=== PATIENT | female | born 1950 | race Caucasian/White ===

== ENCOUNTER 2018-04-04 10:00 | Outpatient (RCR) | payer MEDICARE, OTHER, SELFPAY ==
--- NOTE | 2018-03-06 19:15 | HP.OTEVAL_ITS ---
Patient's Visit Information NENA ROBLES is a 67 year old F, referred to Occupational Therapy by Amrit Adams, with a diagnosis of . Date of Evaluation: 03/06/18 Occupational Therapist: Kayla Rivera - Subjective Subjective: Arrived to OT eval on this date. Noted she has been dealing with hand pain over last year and half. Noted that she had two cortisone injections. - Pain Bilateral Hand 4 Pain Intensity Range: 1, 2, 9 - Rehabilitation Rehabilitation Potential: Good - Anticipated Interventions Anticipated Interventions: A/AAROM/PROM, Strengthening, Edema Control, Triggerpoint Release, Modalities, Orthoses, Joint Protection/Energy Conservation , Ergonomic Education, Fine Motor Coord/Tariq, Visual/Perceptual Skills, ADL Training, Caregiver Training, Home Program - Visit Plan Frequency: 2x /Week Duration: 6 Weeks TEXT: Thank you for the opportunity to evaluate your patient. For Medicare and Medicare HMO plans, please review the plan of care and approve it. It will need to be FAXED BACK to us at [phone] for Medicare purposes. Please let me know if there are questions or concerns regarding this plan of care. Physician Signature: Date:
--- NOTE | 2018-03-07 09:35 | HP.OTEVAL_ITS ---
Patient's Visit Information MARGOT ROBLES is a 67 year old F, referred to Occupational Therapy by Amrit Adams, with a diagnosis of Hand Pain M79.643. Date of Evaluation: 03/06/18 Occupational Therapist: Kayla Rivera - Subjective Subjective: Arrived to OT evaluation on this date. Noted she has been dealing with hand pain over last year and half. Noted that she had two cortisone injections. She has received MRI on B hands. R handed MRI indicated flexor tenosynovitis of 3rd and 4th digits, as well as cyst on 3rd metacarpal and small osteophytes of IP 1st digits. Hands were swollen upon arrival and she noted that is normal. She has lymphedema in B ankles. She described worry of being unable to make full fists and consistent pain. She noted she had multiple blood work completed and levels for lupus, RA, and inflammatory arthritis were all very low. She noted that doctor did give dx of inflammatory arthritis. - Pain Bilateral Hand 4 Pain Intensity Range: 1, 2, 9 - Objective Objective/Observation: Swelling over MCPS and at PIP joints of hand. Limited ROM and unable to form full composite fist. Increased tenderness with palpation over volar base of MCP at 3rd and 4th fingers. Sensation intact. - ROM Forearm: Sup WNL Wrist: R flexion 0-75, L 0-75; ext R 0-34, L 0-45 MP: R 2-5th: 6-53, 5-52, 4-38, -14-54; L 2-5th: 0-45, 10-45, -8-55, 5-59 PIP: R 2-5th: 0-92, 4-93, 0-92, 10-91; L 2-5th: 4-84, 23-83; 5-84; 0-76 DIP: R 2-5th: 5-30, -10-43, -10-48, -2-25; L 2-5th: 8-37, 0-53, 0-37, 0-27 ROM Comments: MF to palm 3 cm on B hands. Unable to form full composite fist. - Strength Clinical Provider Trainer: R 11, L 29 Lateral Pinch: R 13, L 14 Tripod Pinch: R 9, L 12 Tip-to-Tip Pinch: R 8, L 10 - Edema Proximal Phalanx: PF 7.2 cm - Sensation Thumb: R 3.61, L 3.22 Index: R 2.83, L 2.83 Middle: R 2.83, L 2.83 Ring: R 2.83, L 2.83 Little: R 2.83, L 2.83 - DASH-Disabilities of Arm, Shoulder& Hand DASH Sum: 88 - Goals Goal:: Pt. to increased B heating and ventilation engineer strength by 15-20 lbs to promote increased ability to heating and ventilation engineer and manipulate self-care times by d/c. Goal:: Margot to inceased ROM of B hand to form full fist 4/5 trials 80% of the time to promote ability to manipualte items need for fx activities by d/c. Goal:: Margot to complete pain management techniques and compensation to decreased pain to 1-2/10 during fx tasks with bvreaks as needed to promote increased QOL by d/c. Goal:: Margot to be (I) to complete edema reduction and management techniques of massage and compression garments 4/5 trials 80% of the time to manage edema by d/c. Goal:: Margot to be mod I to complete joint protection techniques and energy conservation techniques 4/5 trials 80% of the time to help manage pain and protect hands to increased participation with ADL/IADls by d/c. - Rehabilitation General Assessment: Margot arrived to OT evaluation on this date. She has been having hand pain consistently for last year and half and has already received 2x cortisone shots. The first cortisone shot relieved pain for 8 months but pain return and became worse. She noted that she has had MRI on B hands. Joint were good as per patient report from results given by doctor. She brought report of R hand MRI with indicated flexor tenosynovitis of trigger finger of 3rd and 4th digits, subchondrial cyst at 3rd MCP head, and the starts of small osteophytes of IP of 1st digit. She noted hand pain is unbearable, but she continues to complete tasks. Trigger finger is not locking as consistently as per Pt. report since cortisone injections. Edema noted t/o B hands with significant swelling around MCP. L hand appears to have increased swelling but Pt. report less pain. She noted that testing complete for lupus, RA, and additional arthritis and blood work was insignificant but was diagnosed with inflammatory arthritis. ROM and strength are both limited at this time. Pain is significant and increased with daily activities. Pt. reports 3-9/10 consistently. Rehabilitation Potential: Good - Anticipated Interventions Anticipated Interventions: A/AAROM/PROM, Strengthening, Edema Control, Triggerpoint Release, Modalities, Orthoses, Joint Protection/Energy Conservation , Ergonomic Education, Fine Motor Coord/Tariq, Visual/Perceptual Skills, ADL Training, Caregiver Training, Home Program - Visit Plan Frequency: 2x /Week Duration: 6 Weeks General Plan: Margot to complete OT to help provided education and techniques to help manage pain in B hands and edema to promote increased participation in ADl/IADLs. ROM, strengthening, as well as joint protection and energy conservation techniques to be completed as well as to promote increasing QOL and ability to complete fx tasks. TEXT: Thank you for the opportunity to evaluate your patient. For Medicare and Medicare HMO plans, please review the plan of care and approve it. It will need to be FAXED BACK to us at [phone] for Medicare purposes. Please let me know if there are questions or concerns regarding this plan of care. Physician Signature: Date:
--- NOTE | 2018-07-04 17:06 | HP.OTREVAL ---
Amrit Adams, It has been my pleasure to treat MARGOT ROBLES over the last 8 visits for Hand Pain M79.643. Please see the progress note below for an update on the occupational therapy plan of care! Subjective: Arrived and noted today is last scheduled appointment. Feels about 30-40% improved and she noted pain not near as severe as when I came in. Believes swelling is down; wears gloves every other day as opposed to finger braces. Talked about when completing repetitive tasks with hands e.g. cooking, cleaning etc. Verbalized understanding. Objective/Function: Completed reassessment on this date. Increased pain symptoms with movement. ROM measurements are as follows: wrist flexion R 0-77, L 0-85; ext R 0-45, L 0-56. R hand is able to make composite fist today and measurements are as follows: R. 2 MCP 5-75, PIP 0-96, DIP WFL. 3 MCP 0-71, PIP 8-96, DIP WFL. 4 0-63, PIP 0-94, DIP WFL. 5th MCP 0-75, PIP 9-97, DIP WFL. L hand. 2 MCP 5-61, PIP 3-96, DIP WFL. 3 MCP 0-58, PIP 25-89, DIP WFL. 4th MCP 3-58, PIP 0-86, DIP WFL. 5th MCP 13-76, PIP -8-84, DIP WFL. Edema at Proximal Phalanx: IF R 8.1 cm, L 8.2 cm. MF R 8.1 cm, L 8.5 cm. RF 7.8 cm, L 8 cm. PF 6.8 cm, L 7 cm. Strength assessment completed and is as follows: nitroglycerin nitrator operator batch R 35, L 25; lateral R 14, L 15; tripod R 10, L 10; tip R 10, L 11 lbs. Margot has progressed with nitroglycerin nitrator operator batch strength and L PF proximal phalanx seems to be less swollen from 7.2 cm to 7.0 cm today. She continues to exhibit edema issues and differences are observable with variation of weather. She has progressed but due to continue concerns it is recommended she sees a hand specialist at this time. Plan Frequency: 2x /Week Duration: 6 Weeks Plan: She is to follow up 1x appointment in 2x weeks and within that time is to try and schedule appointment with hand specialist. 1x follow up to adjust insert as needed for increased pressure in flexion glove. Educated that if she does not need appointment she is to cancel and will be d/c'd at that time. As of now she has progressed and she noted improvement and pain is not as severe . However, due to continued symptoms it would be recommended to see hand specialist or return to arthritis specialist at this time to help decrease inflammation and promote increased fx use of B hands. Goals - Goals Goal:: Pt. to increased B nitroglycerin nitrator operator batch strength by 15-20 lbs to promote increased ability to nitroglycerin nitrator operator batch and manipulate self-care times by d/c. Goal:: Margot to inceased ROM of B hand to form full fist 4/5 trials 80% of the time to promote ability to manipualte items need for fx activities by d/c. Goal:: Margot to complete pain management techniques and compensation to decreased pain to 1-2/10 during fx tasks with bvreaks as needed to promote increased QOL by d/c. Goal:: Margot to be (I) to complete edema reduction and management techniques of massage and compression garments 4/5 trials 80% of the time to manage edema by d/c. Goal:: Margot to be mod I to complete joint protection techniques and energy conservation techniques 4/5 trials 80% of the time to help manage pain and protect hands to increased participation with ADL/IADls by d/c. Anticipated Interventions Anticipated Interventions: A/AAROM/PROM, Strengthening, Edema Control, Triggerpoint Release, Modalities, Orthoses, Joint Protection/Energy Conservation, Ergonomic Education, Fine Motor Coord/Tariq, Visual/Perceptual Skills, ADL Training, Caregiver Training, Home Program Please do not hesitate to contact me at [phone] by phone or if you have questions or concerns regarding this new plan of care! Sincerely, Kayla Rivera
--- NOTE | 2018-07-04 17:07 | HP.OT.NRP ---
HP - Discharge Summary - Patient Information NENA ROBLES was seen in my office for initial evaluation on 03/06/18. The following Plan of Care was established for this patient: Initial Frequency: 2x /Week Initial Duration: 6 Weeks Plan: She is to follow up 1x appointment in 2x weeks and within that time is to try and schedule appointment with hand specialist. 1x follow up to adjust insert as needed in flexion glove. Educated that if she does not need appointment she is to cancel and will be d/c'd at that time. As of now she has progressed and she noted improvement and pains not as severe. However, due to continued symptoms it would be recommended to see hand specialist or return to arthritis specialist to help decrease inflammation and promote increased fx use of B hands. - Anticipated Interventions Anticipated Interventions: A/AAROM/PROM, Strengthening, Edema Control, Triggerpoint Release, Modalities, Orthoses, Joint Protection/Energy Conservation, Ergonomic Education, Fine Motor Coord/Tariq, Visual/Perceptual Skills, ADL Training, Caregiver Training, Home Program This patient was last seen in our office 04/04/18. Pertinent comments regarding their Occupational therapy will appear below: She was to follow- up with doctor and then return to OT. She did not return and will be d/c'd at this time. At this point I will be discontinuing this patient from occupational therapy. I would be happy to see this patient again in the future if found appropriate by the physician. Thank you! Kayla Rivera
== END 2018-04-04 19:00 | disposition home or self-care (01) ==
LOC: OT 10:00
PROVIDERS: Family Provider Family Medicine; PCP Family Medicine; Visit Provider Family Medicine
DX: M79.643 Pain in unspecified hand (principal)
CPT/HCPCS: 97035; 97110; 97140; 97166; 97168; 97530; 97760; G8987; G8989

== ENCOUNTER 2018-07-06 10:43 | Emergency (ER) | payer MEDICARE, OTHER, SELFPAY ==
[2018-07-06 10:44] VITALS: BP 149/92; PULSE 77; RESP 16; TEMP 36.4; O2SAT 98; BMI 28.0
--- NOTE | 2018-07-06 11:09 | RAD_ITS ---
STUDY: X-RAY - LEFT HIP REASON FOR EXAM: Female, 67 years old. Hip pain. TECHNIQUE: 2 views of the hip. COMPARISON: None. FINDINGS: Normal femoral head, neck, intertrochanteric region and visualized proximal femur. Normal acetabulum. There is mild articular joint space narrowing. Normal visualized superior and inferior pubic rami and ischial tuberosities. RAD/HIP, UNI W/ Pelvis 2-3 Views IMPRESSION: Mild hip degenerative change with no evidence of acute osseous abnormality. Electronically Signed: Josh Castaneda DO at 11:39 EST , Service support ,
--- NOTE | 2018-07-06 11:15 | ED.DCSUM_ITS ---
- ER Visit Summary Date of Service: 07/06/18 Chief Complaint: [] Left knee pain after standing a few days ago History of Present Illness: The patient is a 67 F [] she has a history of left knee pain for 3 or 4 days initially occurred when she stood she felt some type of a tear to the left lateral knee, she has problems with that knee at baseline related to her prior meniscus surgery and she indicates the knee is weak to where sometimes she basically has to lift her leg into the car because moving the knee causes pain, the symptoms seem worse given the above history of standing and feeling a sudden tug or pull laterally, she presents for evaluation she has no direct trauma she has diabetes is well controlled she is been seen in the past by Dr. Feliz she believes she did have a left knee meniscus surgery in the past Physical Examination: [] 169/80, general, no distress resting comfortably HEENT is generally unremarkable The neck is supple no adenopathy Cardiovascular, regular rate and rhythm Lungs, clear bilateral Abdomen, soft nontender Extremities, no clubbing cyanosis or edema, she complains of pain over the left lateral knee the knee shows no contusion bruising or deformity, the patella is in good position range of motion is intact there is no obvious instability she complains of discomfort laterally when the knee is ranged she has no specific hip pain the distal tib-fib ankle and foot exam are unremarkable Neurologic, awake alert answering questions appropriately moving all 4 extremities Test Results: [] Emergency Department Course and Treatment: [] She does not wants anything for pain given all the above x-rays were obtained, these x-rays per radiology show DJD please see those reports of explained all the above to her at this time I have recommended she follow back up with Dr. Feliz orthopedic surgery, she asked for additional referral and she is referred to [facility] as well [facility] for pain she will use her walking devices and return for change in symptoms Treatment Plan: [] Disposition: [] Home stable Impression: [] left knee pain injury This note was generated with [employer] dictation software. It may contain incorrect words, spelling, and punctuation that were not noted in review of the chart prior to signing ED Disposition - Plan for ED Patient: Chief Complaint: Lower Extremity Injury Referrals: Amrit Adams MD [Primary Care Provider] -
--- NOTE | 2018-07-06 11:17 | RAD_ITS ---
STUDY: X-RAY - LEFT KNEE REASON FOR EXAM: Female, 67 years old. Knee pain TECHNIQUE: 4 view(s) of the knee. COMPARISON: None. FINDINGS: Normal visualized distal femur. Normal visualized proximal tibia and fibula. Normal proximal tibiofibular articulation. There is moderate degenerative arthrosis of the medial femorotibial compartment with moderate joint space narrowing. There is mild degenerative arthrosis of the lateral femorotibial compartment. There is moderate degenerative arthrosis of the patellofemoral articulation. The soft tissue structures are unremarkable. RAD/Knee 4 or More Views IMPRESSION: Tricompartmental osteoarthrosis as above with no evidence of acute osseous injury. Electronically Signed: Josh Castaneda DO at 11:40 EST , Service support ,
--- NOTE | 2018-07-06 12:49 | ED.DEP ---
ED Disposition - Plan for ED Patient: Chief Complaint: Lower Extremity Injury Instructions: ED Knee Pain UKO, ED Meniscal Injury Knee Poss Prescriptions: Naproxen [Naprosyn] 500 mg PO BID PRN #20 tab Referrals: Amrit Adams MD [Primary Care Provider] - Tj Feliz DO [STAFF PHYSICIAN] - Armin Tucker MD [STAFF PHYSICIAN] -
[2018-07-06 13:29] VITALS: BP 123/74; PULSE 73; RESP 15; O2SAT 98
== END 2018-07-06 13:29 | disposition home or self-care (01) ==
LOC: ED 11:23
PROVIDERS: Emergency Provider Emergency Medicine; Family Provider Family Medicine; PCP Family Medicine
DX: S89.92XA Unspecified injury of left lower leg, initial encounter (principal); X58.XXXA Exposure to other specified factors, initial encounter; Y93.89 Activity, other specified; M17.12 Unilateral primary osteoarthritis, left knee; E11.9 Type 2 diabetes mellitus without complications
CPT/HCPCS: 73502; 73564; 99282

== ENCOUNTER → 2019-04-23 11:31 | Outpatient (CLI) | payer MEDICARE, OTHER, SELFPAY ==
[2019-04-23 11:25] VITALS: BMI 28.0
--- NOTE | 2019-04-23 11:35 | RAD_ITS ---
STUDY: X-RAY - CERVICAL SPINE REASON FOR EXAM: Female, 68 years old. Neck pain TECHNIQUE: AP and lateral view(s) of the cervical spine were obtained. COMPARISON: None FINDINGS: Normal anterior atlantoaxial articulation. Normal odontoid process. Normal cervical lordosis. No evidence for acute fracture or subluxation. Narrowed disc space heights at C5-6 and C6-7 with osteophytic spurring The soft tissue structures are unremarkable. RAD/Cerv Spine 2 or 3 Views IMPRESSION: Mild spondylosis. No evidence for acute fracture Electronically Signed: Ludin Fink MD at 20:41 EDT , Service support ,
== END ==
PROVIDERS: Family Provider Family Medicine; PCP Family Medicine; Referring Provider Orthopaedic Surgery; Visit Provider Orthopaedic Surgery
DX: M54.2 Cervicalgia (principal)
CPT/HCPCS: 72040

== ENCOUNTER 2022-03-12 09:07 | Emergency (ER) | payer MEDICARE, OTHER, SELFPAY ==
[2022-03-12 09:08] VITALS: BP 155/99; PULSE 87; RESP 14; TEMP 36.9; O2SAT 98; BMI 26.9
--- NOTE | 2022-03-12 10:05 | EX.ED.UPPERE ---
HPI History of Present Illness HPI Narrative: Patient presents with left upper extremity injury that occurred yesterday. Patient slipped and fell in the bathtub. Patient complains of pain from her left hand to her left elbow. Patient describes her pain as aching. Patient states it is worse with any movement. Patient states it is better with rest. Patient denies any paresthesias or weakness. Patient denies any head injury or loss of consciousness. Patient denies any other injuries. Chief Complaint: Upper Extremity Injury Informant: patient Occured/Mechanism Mechanism/Context: Yes fall Onset/Context/Timing Onset: Yesterday Context: Sudden Onset Timing: Continuous Quality of Pain: Aching Location: Left wrist, forearm, and elbow Worsened by: Movement Relieved by: Rest Associated Symptoms Associated Symptoms: Negative for Parasthesia, Weakness or Loss of Funtion PFSH [facility] Medical History Diabetes Hypertension Home Medications cinnamon bark 500 mg capsule (Cinnamon) 1,000 mg PO DAILY 04/23/19 [History Last Taken Unknown] meclizine 25 mg tablet 25 mg PO DAILY PRN 04/23/19 [History Last Taken Unknown] multivitamin 1 tab PO DAILY 04/23/19 [History Last Taken Unknown] triamterene 37.5 mg-hydrochlorothiazide 25 mg capsule 1 cap PO DAILY 04/23/19 [History Last Taken Unknown] Allergy/AdvReac Type Severity Reaction Status Date / Time adhesive tape Allergy Rash Verified 03/12/22 09:09 celecoxib [From Celebrex] Allergy Hives Verified 07/06/18 10:45 [id number] Reductase AdvReac Other Verified 07/06/18 10:45 Inhibitor [Zooxuwt-Gqq-Oru Reductase Inhibitor] Surgical History H/O: hysterectomy History of carpal tunnel release Social History Smoking Status: Never smoker ROS ROS ED Constitutional Constitutional ED: Denies chills or fever(s) Eyes Eyes: Denies blurry vision or change in vision ENT ENT ED: Denies rhinorrhea or sore throat Cardiovascular Cardiovascular: Denies chest pain or palpitations Respiratory/Chest Respiratory/Chest: Denies cough or dyspnea Gastrointestinal Gastrointestinal: Denies nausea or vomiting Genitourinary Genitourinary ED: Denies dysuria or hematuria Musculoskeletal Musculoskeletal: Reports neck pain; Denies back pain Integumentary Denies abscess or rash Neurologic Neurologic: Denies headache(s) or weakness Allergic/Immunologic Allergic/Immunologic ED: Denies mouth swelling or urticaria EXAM Physical Exam Const Vital Signs: 03/12/22 09:08 Temperature 98.4 F Temperature Source Temporal Pulse Rate 87 Respiratory Rate 14 Blood Pressure 155/99 H Blood Pressure Mean 117 Pulse Ox 98 Oxygen Delivery Method Room Air Positive well nourished and well developed General Appearance ED: well developed and NAD HEENT Reports moist mucous membranes Neck full ROM Extremity Extremity Narrative: There is tenderness and mild edema over the left wrist and left elbow. There is no bony crepitance or step-off. There is no deformity noted. Range of motion was limited in all motions of the left elbow and left wrist secondary to pain. Sensation was intact to light touch in the radial, median, and ulnar areas. Strength is 5/5 in the radial, median, and ulnar areas. Radial pulses are equal bilaterally. Neuro oriented x3, CN's II-XII intact bilaterally, moves all extremities, no focal motor deficits and no sensory deficits noted Sensorium / Orientation: alert Motor Exam: strength 5/5 throughout MDM MDM MDM Narrative Medical decision making narrative: Patient with ordered a dose of [place] here. Patient declined this and requested only Tylenol. Patient was given a dose of Tylenol here. X-rays of the left elbow were obtained. There are 3 views. On my interpretation, there is no acute fracture or dislocation. There is some displacement of the anterior fat pad. This could represent an occult fracture. Radiologist also interpreted the x-rays and agrees. X-rays of the left wrist were obtained. There are 3 views. On my interpretation, there is no acute fracture or dislocation. Radiologist also interpreted the x-rays and agrees. Patient was advised of her findings. Patient was given a sling for comfort. Patient was instructed to ice and elevate the left elbow and left wrist. Patient was instructed to take Tylenol as needed for pain. Patient was instructed to follow-up with her primary care physician in 5 to 7 days. Patient understood and was agreeable with the plan. All questions were answered. Discharge Plan Triage Chief Complaint: Upper Extremity Injury ED Provider: Angel Hays Dx/Rx/DC Orders Clinical Impression: Effusion of left elbow, Left wrist sprain, Fall Instructions: ED Sprain, Elbow, ED Wrist Sprain Prescriptions: No Action meclizine 25 mg tablet 25 mg PO DAILY PRN triamterene-hydrochlorothiazid 37.5-25 mg capsule 1 cap PO DAILY multivitamin Tablet 1 tab PO DAILY cinnamon bark [Cinnamon] 500 mg capsule 1,000 mg PO DAILY Primary Care Provider: Amrit Adams Referrals: Amrit Adams MD [Primary Care Provider] - 5-7 Days Disposition Disposition: Home, Self Care
[2022-03-12] MEDS: Acetaminophen 500 MG Tablet 1000 MG PO (10:19)
--- NOTE | 2022-03-12 10:30 | RAD_ITS ---
EXAM: XR LEFT WRIST COMPLETE, 3 OR MORE VIEWS CLINICAL INDICATION: Injury/Pain TECHNIQUE: Frontal, lateral and oblique views of the left wrist. This report was created using [employer] report generation technology. COMPARISON: None. FINDINGS: BONES/JOINTS: Degenerative narrowing of the lateral joints of the wrist. No acute fracture. No subluxation. Normal alignment. No sclerotic or destructive changes observed. SOFT TISSUES: Dorsal soft tissue swelling. No radiopaque foreign body. RAD/Wrist min 3 Views IMPRESSION: 1. DJD. 2. Soft tissue swelling. Electronically Signed: Jacob Rivera MD at 11:28 EDT ,
--- NOTE | 2022-03-12 10:30 | RAD_ITS ---
EXAM: XR LEFT ELBOW COMPLETE, 3 OR MORE VIEWS CLINICAL INDICATION: Injury/Pain TECHNIQUE: Frontal, lateral and oblique views of the left elbow. This report was created using [employer] report generation technology. COMPARISON: None. FINDINGS: BONES/JOINTS: Displacement of the anterior fat pad suggestive of joint effusion. No acute fracture. No subluxation. Normal alignment. No destructive or sclerotic lesions. SOFT TISSUES: Normal. No soft tissue swelling or gas. No radiopaque foreign body. RAD/Elbow min 3 Views IMPRESSION: Elbow joint effusion. Electronically Signed: Jacob Rivera MD at 11:27 EDT ,
== END 2022-03-12 12:12 | disposition home or self-care (01) ==
PROVIDERS: Emergency Provider Emergency Medicine; PCP Family Medicine; Visit Provider Emergency Medicine
DX: M25.422 Effusion, left elbow (principal); S63.502A Unspecified sprain of left wrist, initial encounter; W19.XXXA Unspecified fall, initial encounter
CPT/HCPCS: 73080; 73110; 99282

== ENCOUNTER 2023-05-11 23:02 | Emergency (ER) | payer MEDICARE, OTHER, SELFPAY ==
--- NOTE | 2023-05-11 00:01 | RAD_ITS ---
INDICATION: chest pain EXAMINATION/TECHNIQUE: X-RAY - XR Chest 2 Views COMPARISON: None FINDINGS: LINES/DEVICES: None. LUNGS: No consolidation. No pneumothorax. MEDIASTINUM: Unremarkable. CARDIAC SILHOUETTE: Not enlarged. BONES AND SOFT TISSUES: No acute abnormalities. RAD/Chest PA and Lateral IMPRESSION: No evidence of active intrathoracic disease. Electronically Signed: Stefanie Rubio MD at 0:27 EDT ,
[2023-05-11 23:03] VITALS: BP 172/90; PULSE 103; RESP 15; TEMP 36.6; O2SAT 100
--- NOTE | 2023-05-11 23:10 | EKG12_ITS ---
Test Reason : CP Blood Pressure : / mmHG Vent. Rate : 096 BPM Atrial Rate : 096 BPM P-R Int : 156 ms QRS Dur : 078 ms QT Int : 358 ms P-R-T Axes : 046 071 048 degrees QTc Int : 452 ms Normal sinus rhythm Normal ECG Confirmed by ASCENCION GUILLORY, MEAGHAN ([id number]), food editor THOM VELASQUEZ ([id number]) on 05/15/2023 10:31:16 AM Referred By: KYLE Confirmed By:JUNG VEGAS MD
[2023-05-11 23:55] VITALS: BMI 27.2
[2023-05-11] MEDS: Benzonatate 100 MG Capsule PO (23:55)
[2023-05-11 23:57] LABS: Absolute Lymphocyte Count 2.23 X10^3/uL (0.83-4.51); Absolute Neutrophil Count 10.5 X10^3/uL (2.0-7.7); Basophil# 0.03 X10^3/uL; Basophil% 0.2 % (0-1); Eosinophil# 0.37 X10^3/uL; Eosinophils% 2.6 % (0-5); Hematocrit 40.9 % (37-47); Hemoglobin 13.5 g/dL (12.0-15.0); Lymphocyte # 2.23 X10^3/ul (0.83-4.51); Lymphocyte % 15.7 % (19-41); Mean Corpuscular Hgb 28.1 pg (27.0-32.0); Mean Corpuscular Volume 85.2 fL (81-99); Mean Platelet Vol. 9.2 fl (6.2-12.0); Monocyte# 0.98 X10^3/uL; Monocyte% 6.9 % (0-10); NRBC Flagged by Analyzer 0 % (0-5); Neutrophil # 10.46 X10^3/uL (2.7-7.7); Platelet Count 184 K/mm3 (150-450); RBC Distribution Width CV 12.6 % (11.6-14.6); White Blood Count 14.2 K/mm3 (4.4-11.0)
[2023-05-12 00:19] LABS: Anion Gap 9 (5-15); BUN 10 mg/dL (7-18); BUN/Creat Ratio 13.3 RATIO (10-20); Chloride 93 mmol/L (98-107); Creatinine, Serum 0.75 mg/dL (0.55-1.02); EST Glomerular Filtration Rate 80 mL/min (>60); Est Glom Filt Rate - Afr Amer 97 mL/min (>60); Glucose 145 mg/dL (74-106); Magnesium 1.8 mg/dL (1.6-2.6); Potassium 3.4 mmol/L (3.5-5.1); Sodium Level 131 mmol/L (136-145); Troponin-I HS 9 pg/mL (3.0-54.0)
--- NOTE | 2023-05-12 01:13 | EDS_ITS ---
HPI History of Present Illness Chief Complaint: Chest Pain Informant: patient and spouse/S.O. Narrative Narrative: Patient is a 72-year-old female with past medical history of hypertension hyperlipidemia and diabetes. She states that she has had congestion and cough for the past 7 to 10 days and has had a COVID test which was negative. She states that today after coughing she noticed some generalized anterior chest pain. She states she is unsure if she has developed pneumonia or if this is cardiac in nature and secondary to his comes in for evaluation [facility] Medical History (Updated 05/14/23 @ 22:[address] Flakito May, DO) DDD (degenerative disc disease), lumbar Diabetes Diverticulosis of colon (without mention of hemorrhage) Hypertension Lymphedema Mixed hyperlipidemia Primary localized osteoarthritis of right hip Vertigo Home Medications multivitamin 1 tab PO DAILY 04/23/19 [History Last Taken Unknown] triamterene 37.5 mg-hydrochlorothiazide 25 mg capsule 1 cap PO DAILY 04/23/19 [History Last Taken Unknown] B-complex with vitamin C 1 cap PO DAILY 04/06/23 [History Last Taken Unknown] Lactobacillus acidophilus 10 billion cell capsule 10,000 mmu cells PO DAILY 04/06/23 [History Last Taken Unknown] gigi seed oil-omega 3-6-9 1,000 mg (580 mg) capsule 2 cap PO DAILY 04/06/23 [History Last Taken Unknown] cholecalciferol (vitamin D3) 25 mcg (1,000 unit) capsule 25 mcg PO DAILY 04/06/23 [History Last Taken Unknown] ezetimibe 10 mg tablet (Zetia) 10 mg PO DAILY 04/06/23 [History Last Taken Unknown] meclizine 25 mg tablet 25 mg PO TID PRN 04/06/23 [History Last Taken Unknown] valacyclovir 1 gram tablet 1,000 mg PO TID PRN 04/06/23 [History Last Taken Unknown] metformin 500 mg tablet,extended release 24 hr 500 mg PO BID 04/17/23 [History Last Taken Unknown] benzonatate 100 mg capsule 100 mg PO TID PRN cough #30 caps 05/12/23 [Rx Last Taken Unknown] Allergy/AdvReac Type Severity Reaction Status Date / Time adhesive tape Allergy Rash Verified 05/11/23 23:05 celecoxib [From Celebrex] Allergy Hives Verified 05/11/23 23:05 Gbgozia-LWO-DyF Reductase AdvReac Other Verified 05/11/23 23:05 Inhibitor [Kzevjia-Kjr-Vjd Reductase Inhibitor] Family History Mother CVA (cerebral vascular accident) Diabetes Father Pneumonia Brother COPD (chronic obstructive pulmonary disease) Cancer Sister CAD (coronary artery disease) CABG Diabetes Other Myocardial infarction Surgical History H/O: hysterectomy History of back surgery History of carpal tunnel release Hx of cardiac catheterization (~1994) Hx of dilation and curettage Hx of knee surgery Hx of total hip arthroplasty Social History Smoking Status: Never smoker alcohol intake: never substance use type: does not use caffeine: Yes (sometimes) ROS ROS ED Constitutional Constitutional ED: Denies chills or fever(s) ENT ENT ED: Reports rhinorrhea and sore throat Cardiovascular Cardiovascular: Reports chest pain Respiratory/Chest Respiratory/Chest: Reports cough; Denies dyspnea Gastrointestinal Gastrointestinal: Denies abdominal pain, diarrhea, nausea or vomiting Genitourinary Genitourinary ED: Denies dysuria Musculoskeletal Musculoskeletal: Reports myalgias Integumentary Denies rash Neurologic Neurologic: Denies headache(s) Hematologic/Lymphatic Hematologic/Lymphatic: Denies easy bleeding or easy bruising EXAM Physical Exam Const Vital Signs: 05/11/23 23:03 05/11/23 23:27 Temperature 97.9 F Temperature Source Temporal Pulse Rate 103 H Respiratory Rate 15 Respiratory Effort Normal Short of Breath Blood Pressure 172/90 H Blood Pressure Mean 117 Pulse Ox 100 Oxygen Delivery Method Room Air Positive well nourished and well developed General Appearance ED: well developed HEENT HEENT Narrative: Nasal mucosa is hyperemic and boggy and there is cobblestoning the posterior pharynx consistent with sinus drainage without airway edema or compromise or secondary changes in the posterior pharynx to suggest infection Eyes PERRL and EOMs intact bilaterally General Eye ED: Negative for scleral icterus Neck supple Chest Wall Chest Narrative: There is reproducible anterior chest wall pain with palpation without bony deformity or crepitance Resp normal respiratory effort and clear to auscultation bilaterally Cardio regular rate and regular rhythm Rate: other Other Details: Radial and carotid pulses are equal and symmetric GI normal to inspection, nondistended, normoactive bowel sounds, non-tender and non-distended GI Narrative: No voluntary guarding or rigidity no pulsatile mass or fluid wave Auscultation: normoactive bowel sounds Palpation: soft Extremity normal to inspection Extremity Narrative: No asymmetric edema no pitting edema negative Homans' sign bilaterally Neuro oriented x3 and CN's II-XII intact bilaterally Sensorium / Orientation: alert Psych mental status grossly normal Skin no rashes or lesions noted MDM MDM MDM Narrative Medical decision making narrative: Patient presented to the ER hypertensive but has a past medical history of this and otherwise with stable vitals. She reported chest pain along the anterior chest wall after coughing for the past 7 days. Clinically this is most likely chest muscle strain/inflammation but differential diagnosis does include acute coronary syndrome versus pneumothorax versus pneumonia. Secondary to this a basic cardiac work-up was obtained with chest x-ray. I do not feel the need for repeat COVID test as patient states she is having at home which was negative. Labs revealed no clinically significant findings many normal troponin at 9 and normal EKG. chest x-ray revealed no acute infiltrate pneumothorax or pleural effusion and therefore as work-up indicates this is musculoskeletal and patient does not have pneumonia or pneumothorax and is not requiring supplemental oxygen is otherwise safe for discharge. History & Record Review Discussion w/independent historian: Patient and Significant other Lab Data Attestation: I reviewed the patient's lab results. Labs: Laboratory Results - last 24 hr 05/11/23 23:40 WBC 14.2 H RBC 4.80 Hgb 13.5 Hct 40.9 MCV 85.2 MCH 28.1 MCHC 33.0 RDW Std Deviation 39.0 RDW Coeff of Tori 12.6 Plt Count 184 MPV 9.2 Immature Gran % (Auto) 0.600 Neut % (Auto) 74.0 H Lymph % (Auto) 15.7 L [place] % (Auto) 6.9 Eos % (Auto) 2.6 Baso % (Auto) 0.2 Absolute Neuts (auto) 10.5 H Absolute Lymphs (auto) 2.23 Nucleated RBC % 0 Sodium 131 L Potassium 3.4 L Chloride 93 L Carbon Dioxide 29.0 Anion Gap 9 BUN 10 Creatinine 0.75 Estim Creat Clear Calc 47.60 Est GFR (MDRD) Af Amer 97 Est GFR (MDRD) Non-Af 80 BUN/Creatinine Ratio 13.3 Glucose 145 H Calcium 10.0 Magnesium 1.8 Troponin I High Sens 9 Radiography Diagnostic Testing: Clinical Impression(s) from Imaging Studies Chest X-Ray 05/11/23 00:01 IMPRESSION: No evidence of active intrathoracic disease. Electronically Signed: Stefanie Rubio MD at 0:27 EDT Reading Location ID and State: [address] [place] [address] Tel , Service support , Chest x-rays interpreted by the emergency medicine physician reveals no acute in filtrate pneumothorax pleural effusion or widening of the mediastinum Discharge Plan Triage Chief Complaint: Chest Pain ED Provider: Flakito May Dx/Rx/DC Orders Clinical Impression: Acute upper respiratory infection, Musculoskeletal chest pain, Diabetes, Hypertension Instructions: ED URI, Viral, No Abx (Adult), ED Chest Wall Strain Prescriptions: New benzonatate 100 mg capsule 100 mg PO TID PRN (Reason: cough) Qty: 30 0RF No Action triamterene-hydrochlorothiazid 37.5-25 mg capsule 1 cap PO DAILY multivitamin Tablet 1 tab PO DAILY meclizine 25 mg tablet 25 mg PO TID PRN Lactobacillus acidophilus 10 billion cell capsule 10,000 mmu cells PO DAILY Rx Instructions: Plexus cholecalciferol (vitamin D3) 25 mcg (1,000 unit) capsule 25 mcg PO DAILY B-complex with vitamin C Capsule 1 cap PO DAILY Rx Instructions: Plexus Nerve gigi seed oil-omega 3-6-9 1,000 mg (580 mg) capsule 2 cap PO DAILY Rx Instructions: Plexus [place] X valacyclovir 1 gram tablet 1,000 mg PO TID PRN ezetimibe [Zetia] 10 mg tablet 10 mg PO DAILY metformin 500 mg tablet extended release 24 hr 500 mg PO BID Primary Care Provider: Amrit Adams Referrals: Amrit Adams MD [Primary Care Provider] - Activity Restrictions/Additional Instructions: Your x-ray revealed no pneumonia and your work-up for potential cardiac event/heart attack was negative in the ER. Add the Benzonatate/Tessalon Perles to help reduce cough and continue to have your stress test this upcoming Sunday as previously directed. Return to the ER should you have any further concerns Disposition Disposition: Home, Self Care Discharge Date/Time: 05/12/23 01:26
[2023-05-12 01:24] VITALS: BP 168/78; PULSE 100; RESP 16; O2SAT 99
== END 2023-05-12 01:26 | disposition home or self-care (01) ==
PROVIDERS: Emergency Provider Emergency Medicine; PCP Family Medicine; Visit Provider Emergency Medicine
DX: J06.9 Acute upper respiratory infection, unspecified (principal); E11.9 Type 2 diabetes mellitus without complications; R07.89 Other chest pain; I10 Essential (primary) hypertension
CPT/HCPCS: 71046; 80048; 83735; 84484; 85025; 93005; 99283; A4216

== ENCOUNTER → 2023-05-16 | Outpatient (CLI) | payer MEDICARE, OTHER, SELFPAY ==
--- NOTE | 2023-05-16 06:48 | ECHOD_ITS ---
Reason For Study: Chest pain Procedure This was a 2D Doppler, Color Flow transthoracic echocardiogram. Exam performed in department. Left Ventricle Normal LV size. Mild eccentric left ventricular hypertrophy. Left ventricular systolic function is normal. The estimated ejection fraction is 60 %. Normal diastology for age. No regional wall motion abnormalities noted. Right Ventricle Normal RV size. Normal systolic function. Atria Normal left atrium. Cannot rule out small right atrial mass. Recommend GERMAN or cardiac MRI for further evaluation. Mitral Valve The mitral valve is structurally normal. No prolapse or stenosis seen. Trivial mitral valve insufficiency. Tricuspid Valve Normal tricuspid valve. Trivial tricuspid valve insufficiency. Right ventricular systolic pressure estimated to be 27 mmHg. Aortic Valve Trisinus/trileaflet aortic valve. Mild focal aortic valve calcification. Mild (1+) aortic valve insufficiency. Pulmonic Valve Normal pulmonic valve. Trivial pulmonic valve insufficiency. Great Vessels Normal aortic root. Pericardium/Pleural No pericardial effusion. MMode/2D Measurements & Calculations LVIDd: 3.4 cm IVSd: 1.3 cm Ao root diam: 3.6 cm LVIDs: 1.8 cm LVPWd: 1.1 cm RVDd: 3.4 cm FS: 48.5 % LAV(MOD-bp): 37.6 ml LVAd ap4: 21.2 cm2 LVAd ap2: 23.5 cm2 LAV(MOD-bp) Indexed: 20.1 ml/m2 LVLd ap4: 7.2 cm LVLd ap2: 7.2 cm LAV(MOD-sp2): 36.5 ml EDV(MOD-sp4): 50.3 ml EDV(MOD-sp2): 64.2 ml LAV(MOD-sp4): 32.7 ml EDV(sp4-el): 52.6 ml EDV(sp2-el): 64.5 ml LVAs ap4: 12.8 cm2 LVAs ap2: 12.4 cm2 LVLs ap4: 6.4 cm LVLs ap2: 6.7 cm ESV(MOD-sp4): 21.3 ml ESV(MOD-sp2): 20.2 ml ESV(sp4-el): 21.5 ml ESV(sp2-el): 19.6 ml EF(MOD-sp4): 57.6 % EF(MOD-sp2): 68.6 % EF(sp4-el): 59.2 % SV(MOD-sp4): 29.0 ml SV(MOD-sp2): 44.1 ml SV(sp4-el): 31.2 ml LA dimension(2D): 3.1 cm LA A4 area: 15.9 cm2 RA A4 area: 14.5 cm2 TAPSE: 2.3 cm Time Measurements MV dec time: 0.36 sec Doppler Measurements & Calculations MV E max darwin: 71.8 cm/sec Lat Peak E' Darwin: 8.1 cm/sec Med Peak E' Darwin: 5.5 cm/sec MV A max darwin: 101.0 cm/sec E/E' lat: 8.9 E/E' med: 13.0 MV E/A: 0.71 MV dec slope: 202.2 cm/sec2 Ao V2 max: 148.1 cm/sec AI max darwin: 428.0 cm/sec Ao max P.8 mmHg AI max P.5 mmHg Ao V2 mean: 103.4 cm/sec AI dec slope: 214.9 cm/sec2 Ao mean P.9 mmHg AI P1/2t: 583.3 msec Ao V2 VTI: 33.5 cm AV (velocity ratio): 0.70 LV V1 max: 100.0 cm/sec PA V2 max: 96.7 cm/sec TR max darwin: 246.2 cm/sec LV V1 max P.0 mmHg PA V2 mean: 64.0 cm/sec TR max P.3 mmHg LV V1 mean P.3 mmHg LV V1 mean: 72.2 cm/sec LV V1 VTI: 23.3 cm ECHO/Echo Complete Interpretation Summary The estimated ejection fraction is 60 %. Mild focal aortic valve calcification. Mild (1+) aortic valve insufficiency. Cannot rule out small right atrial mass. Recommend GERMAN or cardiac MRI for [facility] er evaluation. Ordering Physician: Reshma Acosta Referring Physician: Amrit Adams Performed By: Sandy Pyle RDCS
--- NOTE | 2023-05-16 14:22 | STRESSREP ---
Stress Test Report Date: 05/16/2023 Procedure: Pharmacologic stress nuclear imaging study Indications: Chest pain Consent: Per the patient Procedure: The patient underwent pharmacologic (Regadenoson 0.4mg ) evaluation with a peak heart rate of 113 beats per minute (76%predicted maximal heart rate) and a peak blood pressure of 150/62 mmHg. The baseline ECG demonstrated sinus rhythm. The peak pharmacologic ECG demonstrated no ischemic changes. There were no cardiac dysrhythmias pretest, during pharmacologic infusion, or recovery. There was no complaint of chest discomfort during pharmacologic infusion or recovery. The patient was injected with 11.8 millicuries of technetium 99m Cardiolite and subsequently rest SPECT Cardiolite nuclear imaging was obtained in the horizontal long, vertical long, and short axis views. The patient underwent pharmacologic (Regadenoson) evaluation. The patient was injected with 36.0 millicuries of technetium 99m Cardiolite and subsequently stress SPECT Cardiolite nuclear imaging was obtained in the horizontal long, vertical long, and short axis views. A gated Cardiolite study at peak stress was obtained. The examination was stopped secondary to completion of protocol. Rest and stress SPECT Cardiolite nuclear imaging status post realignment, normalization, and attenuation correction demonstrate no fixed or reversible perfusion defects. There is end systolic thickening and brightening. The gated Cardiolite study demonstrates myocardial thickening and inward wall motion. The reported LVEF is 79%. Impression: 1. Pharmacologic (Regadenoson) evaluation 2. Peak pharmacologic ECG with no ischemic changes. 3. There were no cardiac dysrhythmias pretest, during pharmacologic infusion, or recovery. 5. Rest and stress SPECT Cardiolite nuclear imaging demonstrate relative uniform tracer uptake and myocardial perfusion appearing within normal limits. 6. The gated Cardiolite study reports an LVEF of 79%. This note was generated with [employer] software. It may contain incorrect words, spelling, and punctuation that were not noted in checking the note before signing.
== END | disposition home or self-care (01) ==
LOC: CVS 06:48
PROVIDERS: PCP Family Medicine; Referring Provider Internal Medicine Cardiovascular Disease; Visit Provider Internal Medicine Cardiovascular Disease
DX: R07.9 Chest pain, unspecified (principal); I10 Essential (primary) hypertension; I35.1 Nonrheumatic aortic (valve) insufficiency; E78.5 Hyperlipidemia, unspecified
CPT/HCPCS: 78452; 93017; 93306; A9500; J2785

== ENCOUNTER → 2023-06-11 | Outpatient (CLI) | payer MEDICARE, OTHER, SELFPAY ==
--- NOTE | 2023-06-11 10:28 | ECHOTEE_ITS ---
Reason For Study: R/O CARDIAC MASS (RT ATRIUM) Medication GERMAN probe 6VT-D (SN [id number]) passed without difficulty. No complications were noted. Cetacaine Topical [place] given X3 orally. Versed 1.0 mg given slow IVP. Fentanyl 50 mcg given slow IVP. Performed a rapid injection of agitated mix of 9 cc saline and 1cc air to assess for atrial septal defect. Left Ventricle Normal LV size. Left ventricular systolic function is normal. The estimated ejection fraction is 55 %. No regional wall motion abnormalities noted. Right Ventricle Normal RV size. Normal systolic function. The right ventricular wall motion is normal. Atria Lipomatous hypertrophy of the atrial septum. Bubble contrast study negative for right to left interatrial shunt. Normal left atrium. No thrombus is detected in the left atrial appendage. Normal right atrium. Mitral Valve Normal mitral valve. Tricuspid Valve Normal tricuspid valve. Aortic Valve Normal aortic valve. Trisinus/trileaflet aortic valve. Pulmonic Valve Normal pulmonic valve. Vessels Normal aortic root. Normal arch. The pulmonary artery is normal size. Pericardium No pericardial effusion. ECHO/Echo Transesophageal (GERMAN) Interpretation Summary Normal LV size. Left ventricular systolic function is normal. The estimated ejection fraction is 55 %. Structurally normal valves. No masses noted in the right atrium. Ordering Physician: Reshma Acosta Referring Physician: Amrit Adams Performed By: Miriam Meléndez, GAURAVCS, RVT
--- NOTE | 2023-06-11 10:28 | PCM.HP.BLA ---
History and Physical Date of Admission: 06/11/23 This is a 72 year old female who presents for a GERMAN. This patient has a past medical history significant for diabetes mellitus and hypertension. According to her, few weeks ago. She has had an episode of anterior chest discomfort that radiated to both shoulders. No associated diaphoresis or shortness of breath. According to her, the discomfort lasted many hours. She went to sleep with it and when she woke up, the discomfort was gone. [place] and did not seek medical help. No recurrence of the symptoms since. According to her, she walks slowly but tries to walk about a mile a day. No orthopnea. No PND. No ankle edema. Intake Vital Signs SEE EMR Allergies SEE EMR Medications SEE EMR PFSH Medical History DDD (degenerative disc disease), lumbar Diabetes Diverticulosis of colon (without mention of hemorrhage) Hypertension Lymphedema Mixed hyperlipidemia Primary localized osteoarthritis of right hip Vertigo Surgical History H/O: hysterectomy History of back surgery History of carpal tunnel release Hx of cardiac catheterization (~1994) Hx of dilation and curettage Hx of knee surgery Hx of total hip arthroplasty Family History Mother CVA (cerebral vascular accident) DiabetesFather PneumoniaBrother COPD (chronic obstructive pulmonary disease) CancerSister CAD (coronary artery disease) CABG DiabetesOther Myocardial infarction Social History Smoking Status: Never smoker alcohol intake: never substance use type: does not use caffeine: Yes (sometimes) ROS Const Const: Positive for daytime sleepiness (occasionally) and difficulty sleeping; Negative for fatigue, weakness, headache(s), frequent falls or excessive sweating Eyes Eyes: Negative for loss of peripheral vision, transient loss of vision, blurry vision, double vision or tunnel vision ENT ENT: Negative for headache(s), dizziness, Nosebleed/epistaxis or balance problems Cardio Chest Pain: No Palpitations: No Edema: Bilateral (always) Muscle aches with walking: None Resp Respiratory: Negative for SOB with activity, SOB at rest, SOB orthopnea\SOB lying down, Cough or paroxysmal nocturnal dyspnea GI GI: Negative nausea, vomiting, heartburn or black,tarry stools : Negative for hematuria Musc Musc: Positive for joint pain (knees); Negative for muscle aches/ myalgia, muscle weakness or balance problems Skin Skin: Negative non-healing lesions, rash or unusual bruising Neuro Neuro: Negative for dizziness, lightheadedness, near syncope, syncope, frequent falls, headache(s), weakness, blurry vision, double vision or lack of coordination [place] Hematologic/Lymphatic: Negative for easy bleeding or easy bruising Endo Endo: Negative for fatigue, excessive sweating or increased thirst/drinking Psych Psych: Negative for anxiety or depression Allergy Allergy/Immunology: Negative for hives and Negative for rash Cardiology Exam Const Appearance: comfortable and no acute distress Nutritional Appearance: well nourished Neck Neck: no JVD Carotids: Negative bruit Chest Auscultation: Bilateral: Clear to Auscultation Cardio Rate: regular rate Rhythm: regular rhythm Heart sounds: S1 normal and S2 normal Neuro General: patient alert, patient awake and patient oriented x3 Extremities Lower Extremity Edema: Trace: Bilateral Supplemental Info Supplemental Information Echocardiogram 05/16/2023: Interpretation Summary The estimated ejection fraction is 60 %. Mild focal aortic valve calcification. Mild (1+) aortic valve insufficiency. Cannot rule out small right atrial mass. Recommend GERMAN or cardiac MRI for further evaluation. STRESS TEST 01/03/21: CONCLUSIONS 1. SPECT Perfusion Study: Normal. 2. There is no scintigraphic evidence for inducible ischemia. 3. No evidence of scarred myocardium. 4. Left ventricle is normal in size. The left ventricle systolic function is normal. 5. Right ventricle is normal in size. The right ventricle systolic function is normal. 6. This is a low risk scan. Stress ECG Conclusion: Normal with exception due to T wave inversion, T waves changes and low chronotropic response index. STRESS ECHO 12/24/14: CONCLUSIONS - The exercise stress echo was negative for ischemia at 113% of MPHR (7.0 METS). - The left ventricle is normal in size. Left ventricular systolic function is normal. EF = 61 + 5% (2D biplane) Baseline left ventricular diastolic function is consistent with abnormal relaxation (stage 1). - Trivial - 1+ MR. - 1+ TR. - 1+ AI. - Estimated right ventricular systolic pressure is 27 mmHg consistent with normal pulmonary artery pressures. Estimated right atrial pressure is 5 mmHg. Assessment and Plan Assessment and Plan (1) Atrial mass: Patients echocardiogram from 05/16/2023 demonstrated ejection fraction of 60% small right atrial mass. Will proceed with a GERMAN to further assess this. Depending on results, further recommendations will be made.
== END | disposition home or self-care (01) ==
LOC: CVS 10:27
PROVIDERS: PCP Family Medicine; Referring Provider Internal Medicine Cardiovascular Disease; Visit Provider Internal Medicine Cardiovascular Disease
DX: R93.1 Abnormal findings on diagnostic imaging of heart and coronary circulation (principal); I35.1 Nonrheumatic aortic (valve) insufficiency
CPT/HCPCS: 93312; 93320; 93325; J7040; A4216

== ENCOUNTER 2023-06-16 13:41 | Emergency (ER) | payer MEDICARE, OTHER, SELFPAY ==
[2023-06-16 13:43] VITALS: BP 147/77; PULSE 95; RESP 16; TEMP 36.4; O2SAT 99; BMI 26.6
--- NOTE | 2023-06-16 14:05 | CT_ITS ---
INDICATION: trauma EXAMINATION: CT CERVICAL SPINE - CT Spine Cervical W/O Contrast Injection TECHNIQUE: Helically acquired images were obtained of the cervical spine. 2D reformatted images were reviewed. A radiation dose optimization technique was used for this scan. IV Contrast dosage and agent: None. RADIATION DOSAGE (If Supplied By Facility): CTDIvol = ( 13.86 ) mGy, DLP = ( 279.49 ) mGycm COMPARISON: FINDINGS: VERTEBRAE: No fracture or traumatic subluxation. No discrete lytic or blastic abnormality. Normal alignment. Normal craniocervical junction and cervicothoracic junction. DISCS and SPINAL CANAL: C4-5 moderate disc bulging. Moderate loss of disc space height C5 through C7. NECK SOFT TISSUES: No prevertebral soft tissue swelling. There is no cervical adenopathy. LUNG APICES: Clear. CT/Spine Cervical without Contras IMPRESSION: No evidence of acute cervical spinal fracture or spondylolisthesis. Electronically Signed: Misha Morales MD at 14:37 EDT ,
--- NOTE | 2023-06-16 14:05 | CT_ITS ---
INDICATION: trauma EXAMINATION: CT BRAIN - CT Head or Brain W/O Contrast Injection TECHNIQUE: Multiple axial images were obtained of the head without intravenous contrast. A radiation dose optimization technique was used for this scan. IV Contrast dosage and agent: None. RADIATION DOSAGE (If Supplied By Facility): CTDIvol = ( 44.99 ) mGy, DLP = ( 779.24 ) mGycm COMPARISON: FINDINGS: Moderate cortical and central atrophy. CALVARIUM, SKULL BASE, PARANASAL SINUSES AND MASTOID AIR CELLS: Clear. No discrete lytic or blastic abnormalities. ORBITS: Both globes, extraocular muscles, optic nerves and retrobulbar fat appear unremarkable. ASPECTS Score for Acute Strokes: 10 CT/Brain/Head without Contrast IMPRESSION: No acute changes. Moderate cortical and central atrophy. Electronically Signed: Misha Morales MD at 14:35 EDT ,
--- NOTE | 2023-06-16 14:06 | ED.VIS.FALL ---
HPI HPI - Fall History of Present Illness Chief Complaint: Fall Detail of Chief Complaint: Fall Informant: patient Narrative Narrative: Patient presents to the emergency department after sustaining a fall yesterday. Patient states that she was coming out of the house going into the garage and she remembers turning and then waking up on the garage floor. She may have fallen about 30 inches height [place]. She had some grit in her mouth she remembers when she came to. She not really sure why she fell and does not remember falling. She complains of pain in her left wrist and some mild neck pain. She denies any paresthesias or weakness in extremities. She denies chest pain or abdominal pain. She has been ambulatory. Her knees were red and she had a small abrasion on her right palm. Patient not anticoagulated. [facility] Medical History (Updated 06/16/23 @ 14:[address] Shiv Garvey, ) DDD (degenerative disc disease), lumbar Diabetes Diverticulosis of colon (without mention of hemorrhage) Hypertension Lymphedema Mixed hyperlipidemia Primary localized osteoarthritis of right hip Vertigo Home Medications multivitamin 1 tab PO DAILY 04/23/19 [History Last Taken Unknown] triamterene 37.5 mg-hydrochlorothiazide 25 mg capsule 1 cap PO DAILY 04/23/19 [History Last Taken Unknown] B-complex with vitamin C 1 cap PO DAILY 04/06/23 [History Last Taken Unknown] Lactobacillus acidophilus 10 billion cell capsule 10,000 mmu cells PO DAILY 04/06/23 [History Last Taken Unknown] gigi seed oil-omega 3-6-9 1,000 mg (580 mg) capsule 2 cap PO DAILY 04/06/23 [History Last Taken Unknown] cholecalciferol (vitamin D3) 25 mcg (1,000 unit) capsule 25 mcg PO DAILY 04/06/23 [History Last Taken Unknown] ezetimibe 10 mg tablet (Zetia) 10 mg PO DAILY 04/06/23 [History Last Taken Unknown] meclizine 25 mg tablet 25 mg PO TID PRN 04/06/23 [History Last Taken Unknown] valacyclovir 1 gram tablet 1,000 mg PO TID PRN 04/06/23 [History Last Taken Unknown] metformin 500 mg tablet,extended release 24 hr 500 mg PO BID 04/17/23 [History Last Taken Unknown] benzonatate 100 mg capsule 100 mg PO TID PRN cough #30 caps 05/12/23 [Rx Last Taken Unknown] Allergy/AdvReac Type Severity Reaction Status Date / Time adhesive tape Allergy Rash Verified 06/16/23 13:42 celecoxib [From Celebrex] Allergy Hives Verified 06/16/23 13:42 Mrdfnzf-FBF-AoL Reductase AdvReac Other Verified 06/16/23 13:42 Inhibitor [Evdcfrn-Qtv-Mfl Reductase Inhibitor] Family History Mother CVA (cerebral vascular accident) Diabetes Father Pneumonia Brother COPD (chronic obstructive pulmonary disease) Cancer Sister CAD (coronary artery disease) CABG Diabetes Other Myocardial infarction Surgical History H/O: hysterectomy History of back surgery History of carpal tunnel release Hx of cardiac catheterization (~1994) Hx of dilation and curettage Hx of knee surgery Hx of total hip arthroplasty Social History Smoking Status: Never smoker alcohol intake: never substance use type: does not use caffeine: Yes (sometimes) ROS ROS ED Review of Systems ROS Unobtainable: other Constitutional Constitutional ED: Reports lethargy; Denies chills, fever(s), sweats or weight loss Eyes Eyes: Denies blurry vision, change in vision or diplopia ENT ENT ED: Denies rhinorrhea or sore throat Cardiovascular Cardiovascular: Denies chest pain, orthopnea or racing heartbeat Respiratory/Chest Respiratory/Chest: Denies cough, dyspnea, dyspnea on exertion, orthopnea or sputum Gastrointestinal Gastrointestinal: Denies abdominal pain, diarrhea, nausea or vomiting Genitourinary Genitourinary ED: Denies dysuria, hematuria or urinary frequency Musculoskeletal Musculoskeletal: Reports neck pain and other Details: Left wrist pain, neck pain ; Denies arthralgias, back pain or myalgias Integumentary Denies abscess, Abrasions or rash Neurologic Neurologic: Reports headache(s); Denies weakness Psychiatric Psychiatric: Denies anxiety, depression or suicidal thoughts Endocrine Endocrinology: Denies polydipsia, polyphagia or polyuria Hematologic/Lymphatic Hematologic/Lymphatic: Denies easy bleeding, easy bruising or lymphadenopathy Allergic/Immunologic Allergic/Immunologic ED: Denies mouth swelling, tongue swelling or urticaria EXAM Physical Exam Const Vital Signs: 06/16/23 13:43 Temperature 97.5 F L Temperature Source Temporal Pulse Rate 95 Respiratory Rate 16 Blood Pressure 147/77 H Blood Pressure Mean 100 Pulse Ox 99 Oxygen Delivery Method Room Air Positive well nourished and well developed General Appearance ED: well developed and NAD HEENT Reports TM's clear and moist mucous membranes normocephalic and atraumatic; Negative for trauma or tenderness Tympanic Membrane ED: Yes TM's clear Eyes PERRL and EOMs intact bilaterally General Eye ED: Negative for pale conjunctiva or scleral icterus Neck no lymphadenopathy, supple and no JVD Neck Narrative: Mild diffuse C-spine tenderness. No bony step-offs or depressions. General: tenderness Chest Wall inspection of chest normal and palpation of chest normal Chest: Negative for tenderness Resp normal respiratory effort and clear to auscultation bilaterally Effort and Inspection: Negative for respiratory distress or pain with movement Auscultation: Negative for rhonchi, wheezes or diminished lung sounds Cardio regular rate, regular rhythm, S1 normal heart sound, S2 normal heart sound and no murmurs Peripheral Pulses: pulses 2+ throughout GI normal to inspection, nondistended, normoactive bowel sounds, soft to palpation, non-tender, non-distended and no masses Back/Spine no CVA tenderness and no thoracic nor lumbar tenderness Extremity Extremity Narrative: Mild diffuse soft tissue swelling about the left wrist with tenderness over the distal radius and ulna. Good range of motion of all digits. Slight decreased range of motion flexion extension of the wrist secondary to pain and swelling. Patient had a wedding ring on her left index finger which was removed easily General Extremety ED: Negative for edema General Extremity: Negative for edema Neuro oriented x3, CN's II-XII intact bilaterally, no sensory deficits noted and gait normal Sensorium / Orientation: awake, alert, oriented to person, oriented to place and oriented to time Motor Exam: strength 5/5 throughout and strength abnormal Psych mental status grossly normal Skin no rashes or lesions noted and no wounds MDM MDM MDM Narrative Medical decision making narrative: Presents to the emergency department with a fall that occurred yesterday and injury to the left wrist as well as the knees. She does not have much recollection of what happened and why she fell. does state that she has been more forgetful of late. Clinically patient looks well and there is no external evidence of trauma to her head. We did obtain a CT scan of the brain without contrast that was unremarkable as well as CT of the cervical spine which was negative for fractures. I did obtain an x-ray of her left wrist which did not show any fractures. At this point patient clinically looks well and will be discharged to home. She is advised to follow-up with her primary care physician within next 5 to 7 days. Radiography Diagnostic Testing: Clinical Impression(s) from Imaging Studies Brain CT 06/16/23 14:05 IMPRESSION: No acute changes. Moderate cortical and central atrophy. Electronically Signed: Misha Morales MD at 14:35 EDT , Cervical Spine CT 06/16/23 14:05 IMPRESSION: No evidence of acute cervical spinal fracture or spondylolisthesis. Electronically Signed: Misha Morales MD at 14:37 EDT , Wrist X-Ray 06/16/23 14:18 IMPRESSION: Moderate osteoarthritis lateral carpus. Electronically Signed: Misha Morales MD at 14:39 EDT , Three-view x-rays of the left wrist obtained interpreted by myself as no evidence of fracture or dislocation. Radiology in agreement. Discharge Plan Triage Chief Complaint: Fall ED Provider: Shiv Garvey Dx/Rx/DC Orders Clinical Impression: Closed head injury, Fall, Left wrist sprain Instructions: ED Mechanical Fall, ED Head Injury (Adult), ED Wrist Sprain Prescriptions: No Action triamterene-hydrochlorothiazid 37.5-25 mg capsule 1 cap PO DAILY multivitamin Tablet 1 tab PO DAILY meclizine 25 mg tablet 25 mg PO TID PRN Lactobacillus acidophilus 10 billion cell capsule 10,000 mmu cells PO DAILY Rx Instructions: Plexus cholecalciferol (vitamin D3) 25 mcg (1,000 unit) capsule 25 mcg PO DAILY B-complex with vitamin C Capsule 1 cap PO DAILY Rx Instructions: Plexus Nerve gigi seed oil-omega 3-6-9 1,000 mg (580 mg) capsule 2 cap PO DAILY Rx Instructions: Plexus Brandon X valacyclovir 1 gram tablet 1,000 mg PO TID PRN ezetimibe [Zetia] 10 mg tablet 10 mg PO DAILY metformin 500 mg tablet extended release 24 hr 500 mg PO BID benzonatate 100 mg capsule 100 mg PO TID PRN (Reason: cough) Qty: 30 0RF Primary Care Provider: Amrit Adams Referrals: Amrit Adams MD [Primary Care Provider] - 3-5 Days Disposition Disposition: Home, Self Care
--- NOTE | 2023-06-16 14:18 | RAD_ITS ---
INDICATION: injury EXAMINATION/TECHNIQUE: X-RAY - LEFT XR Wrist Min 3 Views 3 VIEWS COMPARISON: FINDINGS: SOFT TISSUES: No soft tissue swelling or gas. No radiopaque foreign body. BONES/JOINTS: Moderate osteoarthritis lateral caprus. No fracture. RAD/Wrist min 3 Views IMPRESSION: Moderate osteoarthritis lateral carpus. Electronically Signed: Misha Morales MD at 14:39 EDT ,
== END 2023-06-16 14:52 | disposition home or self-care (01) ==
PROVIDERS: Emergency Provider Emergency Medicine; PCP Family Medicine; Visit Provider Emergency Medicine
DX: S09.90XA Unspecified injury of head, initial encounter (principal); S63.92XA Sprain of unspecified part of left wrist and hand, initial encounter; M51.36 Other intervertebral disc degeneration, lumbar region; W19.XXXA Unspecified fall, initial encounter
CPT/HCPCS: 70450; 72125; 73110; 99282

== ENCOUNTER → 2023-12-21 | Outpatient (CLI) | payer MEDICARE, OTHER, SELFPAY | END | disposition home or self-care (01) | PROVIDERS: PCP Family Medicine; Referring Provider Nurse Practitioner Gerontology; Visit Provider Nurse Practitioner Gerontology | DX: R00.2 Palpitations (principal) | CPT/HCPCS: 93225; 93226 ==

== ENCOUNTER → 2024-04-30 | Outpatient (CLI) | payer MEDICARE, OTHER, SELFPAY ==
[2024-04-30 08:58] LABS: Absolute Lymphocyte Count 1.94 X10^3/uL (0.83-4.51); Absolute Neutrophil Count 3.9 X10^3/uL (2.0-7.7); Basophil# 0.03 X10^3/uL; Basophil% 0.5 % (0-1); Eosinophil# 0.17 X10^3/uL; Eosinophils% 2.6 % (0-5); Lymphocyte # 1.94 X10^3/ul (0.83-4.51); Lymphocyte % 29.3 % (19-41); Mean Corp Hgb Conc 33.3 g/dL (32-36); Mean Corpuscular Volume 84.1 fL (81-99); Mean Platelet Vol. 9.2 fl (6.2-12.0); Monocyte# 0.53 X10^3/uL; NRBC Flagged by Analyzer 0 % (0-5); Neutrophil # 3.94 X10^3/uL (2.7-7.7); Neutrophil % 59.3 % (47-70); Platelet Count 184 K/mm3 (150-450); RBC Distribution Width CV 12.4 % (11.6-14.6); RBC Distribution Width SD 37.6 fl (35.1-43.9); Red Blood Count 4.64 M/mm3 (4.2-5.4); White Blood Count 6.6 K/mm3 (4.4-11.0)
[2024-04-30 09:48] LABS: Anion Gap 11 (5-15); BUN 8 mg/dL (7-18); BUN/Creat Ratio 12.8 RATIO (10-20); Calcium,Total 10.2 mg/dL (8.5-10.1); Chloride 94 mmol/L (98-107); Creatinine, Serum 0.63 mg/dL (0.55-1.02); EST Glomerular Filtration Rate 99 mL/min (>60); Est Glom Filt Rate - Afr Amer 120 mL/min (>60); Glucose 168 mg/dL (74-106); Magnesium 1.3 mg/dL (1.6-2.6); Potassium 3.5 mmol/L (3.5-5.1); Sodium Level 132 mmol/L (136-145)
== END | disposition home or self-care (01) ==
LOC: PSN 08:18
PROVIDERS: PCP Family Medicine; Referring Provider Physician Assistant Medical; Visit Provider Physician Assistant Medical
DX: R00.0 Tachycardia, unspecified (principal); R00.2 Palpitations; R93.1 Abnormal findings on diagnostic imaging of heart and coronary circulation
CPT/HCPCS: 36415; 80048; 83735; 84443; 85025; 93225; 93226

== ENCOUNTER 2025-01-02 14:09 | Emergency (ER) | payer MEDICARE, OTHER, SELFPAY ==
[2025-01-02 14:11] VITALS: BP 174/79; PULSE 54; RESP 18; TEMP 37; O2SAT 98; BMI 26.4
--- NOTE | 2025-01-02 14:13 | EDS_ITS ---
HPI History of Present Illness Chief Complaint: Palpitations [facility] Medical History (Reviewed 12/05/23 @ 13:10 by Isabel Love BLENDER MACHINE OPERATOR, BLENDER MACHINE OPERATOR-C) Abnormal echocardiogram Aortic regurgitation Chest pain DDD (degenerative disc disease), lumbar Diabetes Diverticulosis of colon (without mention of hemorrhage) Dyslipidemia Hypertension Lymphedema Mixed hyperlipidemia Primary localized osteoarthritis of right hip Vertigo Home Medications ?Medication ?Instructions ?Recorded ?Last Taken ?Type multivitamin 1 tab PO DAILY 04/23/19 Unkn own History B-complex with vitamin C 1 cap PO DAILY 04/06/23 Unkn own History Lactobacillus acidophilus 10 10,000 mmu cells PO DAILY 04/06/23 Unknown History billion cell capsule gigi seed oil-omega 3-6-9 1,000 mg 2 cap PO DAILY 03/20 04/11 Unknown History (580 mg) capsule cholecalciferol (vitamin D3) 25 25 mcg PO DAILY Unknown History mcg (1,000 unit) capsule meclizine 25 mg tablet 25 mg PO TID PRN 04/06/23 Un known History valacyclovir 1 gram tablet 1,000 mg PO TID PRN 3 Unknown History metformin 500 mg tablet,extended 500 mg PO BID 3 Unknown History release 24 hr metoprolol succinate 25 mg 25 mg PO QDAY #90 tabs 04/22 Unknown Rx tablet,extended release 24 hr hydrochlorothiazide 12.5 mg capsule 12.5 mg PO QAM Unknown History magnesium oxide 200 mg PO QDAY 06/17/24 Unkn own History Allergy/AdvReac Type Severity Reaction Status Date / Time adhesive tape Allergy Rash Verified 01/02/25 14:10 celecoxib (From Celebrex) Allergy Hives Verified 01/02/25 14:10 Cfrvutp-QXS-XrY Reductase AdvReac Other Verified 01/02/25 14:10 Inhibitor (Cmjrigr-Euo-Qtv Reductase Inhibitor) Family History (Reviewed 12/05/23 @ 13:10 by Isabel Love BLENDER MACHINE OPERATOR, BLENDER MACHINE OPERATOR-C) Mother CVA (cerebral vascular accident) Diabetes Father Pneumonia Brother COPD (chronic obstructive pulmonary disease) Cancer Sister CAD (coronary artery disease) CABG Diabetes Other Myocardial infarction Surgical History (Reviewed 12/05/23 @ 13:10 by Isabel Love BLENDER MACHINE OPERATOR, BLENDER MACHINE OPERATOR-C) H/O: hysterectomy History of back surgery History of carpal tunnel release Hx of cardiac catheterization (~1994) Hx of dilation and curettage Hx of knee surgery Hx of total hip arthroplasty Social History Smoking Status: Never smoker alcohol intake: never substance use type: does not use caffeine: Yes (sometimes) EXAM Physical Exam Const Vital Signs: 01/02/25 14:11 01/02/25 14:27 01/02/25 14:55 Temperature 98.6 F Temperature Source Oral Pulse Rate 54 L Respiratory Rate 18 Respiratory Effort Normal Non-Labored Blood Pressure 174/79 H Blood Pressure Mean 110 Pulse Ox 98 Oxygen Delivery Method Room Air Room Air 01/02/25 15:09 01/02/25 15:43 Temperature 98.6 F Temperature Source Pulse Rate 85 83 Respiratory Rate 17 Respiratory Effort Blood Pressure 153/77 H 153/77 H Blood Pressure Mean 102 102 Pulse Ox 97 97 Oxygen Delivery Method Room Air MDM MDM MDM Narrative Medical decision making narrative: HISTORY OF PRESENT ILLNESS: Chief complaint: Palpitation 74-year-old female history of palpitations, tachycardia, hyponatremia, hyperlipidemia, aortic regurgitation, type 2 diabetes, hypertension presents with heart rate was all over the place. States patient's feels fatigued. Denies chest pain. She endorses a fall 2 weeks ago she hit her head and injured her back. She denies headache but does note persistent low back pain. The patient denies recent surgery in the last 4 weeks or immobilization in the last 3 days, denies previous diagnosis of DVT or PE, hemoptysis, unilateral leg swelling or malignancy with treatment the last 6 months or palliative. No estrogen use noted. REVIEW OF SYSTEMS: Pertinent positives: Palpitations, back pain, dyspnea Pertinent negatives: Chest pain, vomiting, bleeding diathesis PHYSICAL EXAM: Nursing triage notes reviewed, Vital signs reviewed Constitutional: please see mdm HENT: MMM Eyes: Pupils equal round and reactive to light, Extraocular muscles intact Neck: No stridor, no JVD, full neck ROM Lungs: Clear to auscultation, No wheezing or rales. No increased work of breathing, no conversational dyspnea, no accessory muscle use, no nasal flaring. No respiratory distress noted Heart: Regular rate and rhythm, No murmurs, No rubs and No gallops, 2+ distal pulses (radial, femoral, posterior tibial) in all extremities Abdomen: Soft, there is no tenderness, rigidity, rebound or guarding, no obvious peritoneal signs, no palpable pulsatile abdominal masses, no auscultated abdominal bruit : No CVAT Extremities: No edema Back: Right lower TTP, paraspinal TTP. No midline step-offs or deformities. Neuro: No new focal neurological deficits, cranial nerves II through XII intact, 5/5 strength in all present extremities. Intact sensation to light touch in all present extremities, 2+ reflexes bilateral patella tendons. Skin: No rash or lesions noted MEDICAL DECISION MAKING: Chief Complaint: please see [facility] External records reviewed: Reviewed prior Holter monitor report from 2023: This showed normal sinus rhythm with frequent PVCs and PACs Factors affecting care: As per [facility] Social determinants of health: n denies illicit drug use History obtained from others: EMS Consults: none [facility] Narrative: The patient was initially hypertensive with a blood pressure 174/79, initial heart rate was 54 otherwise afebrile saturating well on room air. Exam without focal neurologic deficits. No focal cardiopulmonary abnormalities I considered the following differential diagnosis: Arrhythmia, anemia, electrolyte disturbance, dehydration, ACS, PE I obtained a broad lab and imaging workup to further elucidate etiology of the patient's complaint. I obtained imaging of the brain and lumbar spine given report of fall 2 weeks ago ALL IMAGES (IF OBTAINED) HAVE BEEN PERSONALLY REVIEWED AND INTERPRETED BY MYSELF. EKG with normal sinus rhythm rate of 94, normal axis, frequent PVCs, normal intervals, no STEMI I have personally reviewed the patient's chest x-ray. Chest x-ray is unremarkable for pulmonary edema, pneumothorax, pneumonia or focal cardiopulmonary abnormality. CT scan of the head and lumbar spine showed no evidence of acute traumatic injury High-sensitivity troponin is negative, no evidence of myocardial ischemia CBC leukocytosis suggestive of significant ovation, no anemia BMP with mild hyponatremia, no other significant electrolyte abnormalities, no acute kidney The synthesis of the patient's history, physical exam, labs images suggest no acute laboratory etiology to explain her palpitations. Most likely etiology is frequent PVCs. She is already on metoprolol. Recommended close outpatient cardiology follow-up for medication titration and further management The patient and/or family, caregivers express understanding. The patient and/or family, caregivers agrees with the plan. Shared decision making: I will have a discussion with the patient and or visitors regarding risk/benefits of further testing or admission. They will be made aware of of the risk/benefits inherent in this decision they will be given the opportunity to voice understanding. Total critical care time today provided was at least 0 minutes. This excludes separately billable procedures. Critical care time (if documented) is secondary to the patient having high probability of clinically significant/life threatening deterioration in the patient's condition which required my urgent intervention. Impression: 1. Palpitation 2. Few PVCs 3. Back contusion Dispo: Discharge home This note was generated with [employer] dictation software. It may contain incorrect words, spelling, and punctuation that were not noted in review of the chart prior to signing. Lab Data Labs: Laboratory Results - last 24 hr 01/02/25 14:23 WBC 12.7 H RBC 4.49 Hgb 12.4 Hct 37.4 MCV 83.3 MCH 27.6 MCHC 33.2 RDW Std Deviation 38.4 RDW Coeff of Tori 12.6 Plt Count 313 MPV 9.6 Immature Gran % (Auto) 0.600 Neut % (Auto) 72.2 H Lymph % (Auto) 19.0 [place] % (Auto) 7.7 Eos % (Auto) 0.3 Baso % (Auto) 0.2 Absolute Neuts (auto) 9.2 H Absolute Lymphs (auto) 2.42 Nucleated RBC % 0 Sodium 131 L Potassium 3.5 Chloride 93 L Carbon Dioxide 23.9 Anion Gap 14 BUN 12 Creatinine 0.55 L Estim Creat Clear Calc 63.99 Est GFR (MDRD) Non-Af 96 BUN/Creatinine Ratio 21.9 H Glucose 153 H Calcium 10.1 Troponin T High Sens 7 Radiography Diagnostic Testing: Clinical Impression(s) from Imaging Studies Brain CT 01/02/25 14:45 IMPRESSION: CHRONIC CHANGES. NO ACUTE FINDINGS. Reading Location: [facility] Lumbar Spine CT 01/02/25 14:45 IMPRESSION: NO ACUTE LUMBAR FRACTURE. DEGENERATIVE CHANGES. Reading Location: [id number] Chest X-Ray 01/02/25 15:02 IMPRESSION: No Acute Findings. Reading Location: [facility] Discharge Plan Triage Chief Complaint: Palpitations ED Provider: Rodrigo Kenney Dx/Rx/DC Orders Instructions: Premature Ventricular Contractions Prescriptions: No Action multivitamin Tablet 1 tab PO DAILY meclizine 25 mg tablet 25 mg PO TID PRN Lactobacillus acidophilus 10 billion cell capsule 10,000 mmu cells PO DAILY Rx Instructions: Plexus cholecalciferol (vitamin D3) 25 mcg (1,000 unit) capsule 25 mcg PO DAILY B-complex with vitamin C Capsule 1 cap PO DAILY Rx Instructions: Plexus Nerve gigi seed oil-omega 3-6-9 1,000 mg (580 mg) capsule 2 cap PO DAILY Rx Instructions: Plexus Brandon X valacyclovir 1 gram tablet 1,000 mg PO TID PRN metformin 500 mg tablet extended release 24 hr 500 mg PO BID hydrochlorothiazide 12.5 mg capsule 12.5 mg PO QAM magnesium oxide 400 mg magnesium tablet 200 mg PO QDAY metoprolol succinate 25 mg tablet extended release 24 hr 25 mg PO QDAY Qty: 90 3RF Primary Care Provider: Amrit Adams Referrals: Fabricio Karimi MD [Med Staff - Active Staff] - Activity Restrictions/Additional Instructions: Thank you for trusting us with your care today! Your labs and images are reassuring. Specifically CT scan of your head and lumbar spine were negative for acute traumatic injuries. Your labs did not reveal evidence of damage to your heart or issues with your blood counts or issues with your electrolytes. Your presentation is like related to premature ventricular contractions. Please follow-up with cardiology for further outpatient management and possible medication changes to improve symptoms Please take Tylenol (2 pills, 650 mg), ibuprofen (2 pills, 400 mg) every 6 hours as needed for pain and fever control. Please return to the emergency department if your symptoms change or worsen. Please follow with your primary care physician and/or cardiology for further outpatient evaluation and management. Print Language: Wolof Disposition Disposition: Home, Self Care Discharge Date/Time: 01/02/25 15:57
--- NOTE | 2025-01-02 14:45 | CT_ITS ---
PROCEDURE: SPINE LUMBAR WITHOUT CONTRAST 01/02/2025 REASON FOR EXAM: LOW BACK PAIN AFTER FALL TECHNIQUE: Lumbar spine CT without contrast. Coronal and Sagittal reconstruction series were provided. One or more dose reduction techniques were used (e.g., Automated exposure control, adjustment of the mA and/or kV according to patient size, use of iterative reconstruction technique COMPARISON: None. RADIATION DOSE SUMMARY: CTDlvol: 28.49 mGy DLP: 870.55 mGycm FINDINGS: Vertebrae: Spondylosis. Alignment: Straightening of the normal lumbar lordosis. L1-2: Mild degree of disc space narrowing and posterior spondylosis. Minimal deformity of the anterior thecal sac although no significant stenosis seen. L2-3: Posterior spondylosis. Mild degree of diffuse posterior disc bulge causing minimal deformity of the thecal sac. Hypertrophy of the facet joints. Mild degree of bilateral neural foraminal stenosis. L3-4: Mild degree of anterior spondylosis. Diffuse posterior disc bulge. Hypertrophy of the facet joints as well as the ligamentum flava causing [id number] degree of central canal stenosis and neural foraminal stenosis. L4-5: The disc space is relatively well-maintained. Mild degree of diffuse posterior disc bulge with minimal deformity of the anterior thecal sac. No significant stenosis seen. L5-S1: Marked degree of disc space narrowing and disc degeneration. Minimal retrolisthesis of L5 on S1. No significant stenosis. Sacrum: Unremarkable CT/Spine Lumbar without Contrast IMPRESSION: NO ACUTE LUMBAR FRACTURE. DEGENERATIVE CHANGES. Reading Location: [facility]
--- NOTE | 2025-01-02 14:45 | EKG12_ITS ---
Test Reason : PALP Blood Pressure : */* mmHG Vent. Rate : 94 BPM Atrial Rate : 94 BPM P-R Int : 156 ms QRS Dur : 70 ms QT Int : 366 ms P-R-T Axes : 26 66 42 degrees QTcB Int : 457 ms Sinus rhythm with frequent Premature ventricular complexes Otherwise normal ECG Confirmed by MAYCOL GUILLORY, MAYRA ([id number]), copy editor THOM VELASQUEZ ([id number]) on 01/05/2025 8:49:36 AM Referred By: TA/BB Confirmed By: MAYRA SEVERINO MD
--- NOTE | 2025-01-02 14:45 | CT_ITS ---
PROCEDURE: BRAIN/HEAD WITHOUT CONTRAST 01/02/2025 REASON FOR EXAM: FALL, HEAD TRAUMA TECHNIQUE: Head CT without intravenous contrast. Coronal and Sagittal reconstruction series were provided. One or more dose reduction techniques were used (e.g., Automated exposure control, adjustment of the mA and/or kV according to patient size, use of iterative reconstruction technique. RADIATION DOSE SUMMARY: CTDlvol: 44.99 mGy DLP: 779.24 mGycm COMPARISON: None FINDINGS: Brain: Low density in the periventricular white matter suggests mild chronic small vessel ischemic changes. CSF Spaces: Mild generalized cerebral atrophy. Dense calcification of the distal portion of the left vertebral artery and basilar tip. Sinuses/Mastoids: Bones: Hyperostosis frontalis interna. CT/Brain/Head without Contrast IMPRESSION: CHRONIC CHANGES. NO ACUTE FINDINGS. Reading Location: [id number]
[2025-01-02] MEDS: 0.9% Normal Saline (500mL Bag) 500 ML 999 ML IV (14:57)
--- NOTE | 2025-01-02 15:02 | RAD_ITS ---
PROCEDURE: CHEST 1 VIEW (PORTABLE) 01/02/2025 REASON FOR EXAM: CHEST PAIN Arrhythmia. TECHNIQUE: Frontal view of the chest. COMPARISON: None FINDINGS: Hardware: EKG electrodes are seen. Heart: The heart is not enlarged. Lungs: The lungs are clear. Bones: Degenerative changes are identified within the thoracic spine. Other: RAD/Chest 1 View (Portable) IMPRESSION: No Acute Findings. Reading Location: [facility]
[2025-01-02 15:05] LABS: Absolute Lymphocyte Count 2.42 X10^3/uL (0.83-4.51); Absolute Neutrophil Count 9.2 X10^3/uL (2.0-7.7); Basophil# 0.02 X10^3/uL; Basophil% 0.2 % (0-1); Eosinophil# 0.04 X10^3/uL; Eosinophils% 0.3 % (0-5); Hematocrit 37.4 % (37-47); Hemoglobin 12.4 g/dL (12.0-15.0); Lymphocyte # 2.42 X10^3/ul (0.83-4.51); Mean Corp Hgb Conc 33.2 g/dL (32-36); Mean Corpuscular Hgb 27.6 pg (27.0-32.0); Mean Corpuscular Volume 83.3 fL (81-99); Mean Platelet Vol. 9.6 fl (6.2-12.0); Monocyte# 0.98 X10^3/uL; Monocyte% 7.7 % (0-10); NRBC Flagged by Analyzer 0 % (0-5); Neutrophil % 72.2 % (47-70); Platelet Count 313 K/mm3 (150-450); RBC Distribution Width CV 12.6 % (11.6-14.6); RBC Distribution Width SD 38.4 fl (35.1-43.9); Red Blood Count 4.49 M/mm3 (4.2-5.4); White Blood Count 12.7 K/mm3 (4.4-11.0)
[2025-01-02 15:09] VITALS: BP 153/77; PULSE 85; O2SAT 97
[2025-01-02 15:28] LABS: Anion Gap 14 (5-15); BUN 12 mg/dL (4-19); BUN/Creat Ratio 21.9 RATIO (10-20); Calcium,Total 10.1 mg/dL (7.6-11.0); Carbon Dioxide 23.9 mmol/L (21.0-32.0); Chloride 93 mmol/L (98-108); Creatinine, Serum 0.55 mg/dL (0.70-1.20); EST Glomerular Filtration Rate 96 (>60); Estimated Creatinine Clearance 63.99 ml/min (50-250); Glucose 153 mg/dL (70-99); Potassium 3.5 mmol/L (3.3-5.1); Sodium Level 131 mmol/L (133-145); Troponin T High Sensitivity 7 ng/L (<=14)
[2025-01-02 15:43] VITALS: BP 153/77; PULSE 83; RESP 17; TEMP 37; O2SAT 97
== END 2025-01-02 15:57 | disposition home or self-care (01) ==
PROVIDERS: Emergency Provider Emergency Medicine; PCP Family Medicine; Visit Provider Emergency Medicine
DX: R00.2 Palpitations (principal); E11.9 Type 2 diabetes mellitus without complications; S20.229A Contusion of unspecified back wall of thorax, initial encounter; I49.3 Ventricular premature depolarization; X58.XXXA Exposure to other specified factors, initial encounter
CPT/HCPCS: 70450; 71045; 72131; 80048; 84484; 85025; 93005; 96360; 99283; A4216